=== PATIENT | male | born 1960 | race Caucasian/White ===

== ENCOUNTER 2024-07-30 08:46 | Day surgery (SDC) | payer OTHER ==
[2024-07-30] MEDS ORDERED: fentaNYL 100 MCG/2 ML SDV ONE (09:10)
[2024-07-30] MEDS ORDERED: Propofol 200 MG/20 ML SDV ONE ×3 (09:10→11:27)
[2024-07-30] MEDS: Lactated Ringers 1,000 ML IV SCH (09:33)
[2024-07-30 12:36] VITALS: BP 165/79; PULSE 65
== END 2024-07-30 12:50 | disposition home or self-care (01) ==
LOC: JP.SDS 08:46
PROVIDERS: ATTEND Surgery
DX: C18.9 Malignant neoplasm of colon, unspecified (principal); D12.5 Benign neoplasm of sigmoid colon; D64.9 Anemia, unspecified; I10 Essential (primary) hypertension; E11.9 Type 2 diabetes mellitus without complications
CPT/HCPCS: 00813; 43239; 45381; 45385; J2704; J3010; J7120; 88305; 88341; 88342